=== PATIENT | female | born 1945 | race Caucasian/White ===

== ENCOUNTER → 2016-12-06 | Outpatient (CLI) | payer MEDICARE, OTHER | LOC: KOH-I 12-03 16:00 | DX: R41.2 Retrograde amnesia (principal) | CPT/HCPCS: 70450 ==

== ENCOUNTER 2017-05-21 18:05 | Emergency (ER) | payer MEDICARE, OTHER ==
[2017-05-21 20:16] LABS: RED BLOOD COUNT 3.94 M/UL (4.00-5.10); WHITE BLOOD COUNT 3.5 K/UL (4.5-11.0)
[2017-05-21 20:39] LABS: BUN/CREATININE RATIO 10 (0-10)
== END 2017-05-21 22:10 | disposition home or self-care (01) ==
LOC: ER1 18:05
PROVIDERS: Family Medicine
DX: R41.0 Disorientation, unspecified (principal); T37.5X5A Adverse effect of antiviral drugs, initial encounter; B02.9 Zoster without complications; Z88.6 Allergy status to analgesic agent; Z79.82 Long term (current) use of aspirin; Z79.899 Other long term (current) drug therapy
CPT/HCPCS: 36415; 70450; 80053; 80307; 81001; 85025; 99285

== ENCOUNTER 2022-01-29 22:21 | Inpatient (IN) | payer MEDICARE ==
[~2022-01-29] VITALS: Ht 162.6 cm; Wt 78.0 kg
[~2022-01-29 22:21] MED LIST: ANUSOL HC SUPP1 SUPP PR; ARICEPT10 MG PO; ATIVAN0.5 MG PO; CATAPRES 0.1MG0.1 MG PO; COLACE 100MG C100 MG PO; CYMBALTA60 MG PO; FLORINEF 0.1 M0.1 MG PO; HYDROCHLOROTHIA25 MG PO; LEVAQUIN500 MG PO; METOPROLOL SUCC25 MG PO; NEURONTIN 400400 MG PO; NORVASC10 MG PO; OMEPRAZOLE20 MG PO; POTASSIUM CHLO20 ME1 PO; SYNTHROID75 MCG PO; ULTRAM50 MG PO; ZOCOR20 MG PO
[2022-01-29 23:14] LABS: HEMOGLOBIN 10.2 gm/dl (12.3-15.3); RED BLOOD COUNT 3.18 M/UL (4.00-5.10); WHITE BLOOD COUNT 2.6 K/UL (4.5-11.0)
[2022-01-29 23:25] LABS: BUN/CREATININE RATIO 20 (0-10)
[2022-01-30 07:19] LABS: HEMOGLOBIN 10.2 gm/dl (12.3-15.3); RED BLOOD COUNT 3.21 M/UL (4.00-5.10)
[2022-01-30 07:20] LABS: WHITE BLOOD COUNT 7.1 K/UL (4.5-11.0)
[2022-01-30 07:37] LABS: BUN/CREATININE RATIO 19 (0-10)
[2022-01-30] MEDS ORDERED: CARBIDOPA-LEVO1 EAC6 PO (10:02)
[2022-01-30] MEDS ORDERED: CEFDINIR300 MG PO (10:02)
[2022-01-30] MEDS ORDERED: POTASSIUM CHLO20 ME2 PO (10:03)
[2022-01-30] MEDS ORDERED: NEURONTIN400 MG PO (10:03)
[2022-01-30] MEDS ORDERED: FLONASE ALLER15.8 ML (10:03)
[2022-01-30] MEDS ORDERED: NAMENDA 5 MG TAB5 MG PO (10:03)
[2022-01-30] MEDS ORDERED: VITAMIN D21250 MCG PO (10:04)
[2022-01-30] MEDS ORDERED: HYDROXYCHLOROQ200 MG PO (10:04)
[2022-01-30] MEDS ORDERED: GABAPENTIN600 MG PO (10:04)
[2022-01-30] MEDS ORDERED: DOCUSATE SODIU100 MG PO (10:04)
[2022-01-30 12:21] LABS: CANDIDA ALBICANS Not Detected (Negative); CANDIDA KRUSEI Not Detected (Negative); CANDIDA TROPICALIS Not Detected (Negative); HAEMOPHILUS INFLUENZAE Not Detected (Negative); KLEBSIELLA OXYTOCA Not Detected (Negative); KLEBSIELLA PNEUMONIAE Not Detected (Negative); KPC-CARBAPENEM-RESISTANCE GENE Not Detected (Negative); PROTEUS Not Detected (Negative); PSEUDOMONAS AERUGINOSA Not Detected (Negative); SERRATIA MARCESANS Not Detected (Negative); STAPHYLOCOCCUS Not Detected (Negative); STAPHYLOCOCCUS AUREUS Not Detected (Negative); STREP AGALACTIAE (GROUP B) Not Detected (Negative); STREP PYOGENES (GROUP A) Not Detected (Negative); STREPTOCOCCUS Not Detected (Negative); vanA/B (VANCOMYCIN RESIST GENE Not Detected (Negative)
[2022-01-30 13:31] LABS: ESCHERICHIA COLI DETECTED (Negative)
[2022-01-31 06:05] LABS: HEMOGLOBIN 9.5 gm/dl (12.3-15.3); WHITE BLOOD COUNT 6.6 K/UL (4.5-11.0)
[2022-01-31 06:28] LABS: BUN/CREATININE RATIO 16 (0-10)
[2022-02-01 03:00] LABS: HEMOGLOBIN 9.6 gm/dl (12.3-15.3); RED BLOOD COUNT 3.03 M/UL (4.00-5.10); WHITE BLOOD COUNT 6.9 K/UL (4.5-11.0)
[2022-02-01 03:55] LABS: BUN/CREATININE RATIO 14 (0-10)
--- NOTE | 2022-02-01 15:46 | NUR ---
PT DESATED ON ROOM AIR TO 70% APPLIED O2 NC PT WENT UP TO 82 MONITORED FOR 1 MINUTE O2 SAT NEVER INCREASED, TURN 02 UP TO 2.5 SAT INCREASED TO 85% MONITORED FOR 1 MINUTE SAT NEVER INCREASED, INCREASED 02 TO 3L WATCHED FOR 3 MINUTES SSAT DID NOT INCREASE OVER 88%, INCREASED 02 TO 4L PT BEGAN TO SAT 90% AFTER 1 MINUTE.
[2022-02-02 04:05] LABS: HEMOGLOBIN 9.4 gm/dl (12.3-15.3); WHITE BLOOD COUNT 7.5 K/UL (4.5-11.0)
[2022-02-02 04:17] LABS: BUN/CREATININE RATIO 14 (0-10)
[2022-02-03 03:27] LABS: RED BLOOD COUNT 2.85 M/UL (4.00-5.10); WHITE BLOOD COUNT 7.4 K/UL (4.5-11.0)
[2022-02-03 03:36] LABS: BUN/CREATININE RATIO 12 (0-10)
[2022-02-04 05:15] LABS: HEMOGLOBIN 9.2 gm/dl (12.3-15.3); RED BLOOD COUNT 2.9 M/UL (4.00-5.10); WHITE BLOOD COUNT 7.5 K/UL (4.5-11.0)
--- NOTE | 2022-02-04 05:37 | NUR ---
PT HFNC WAS INCREASED DURING THE NIGHT FROM 5L TO 8L. WHEN PT GOES TO SLEEP PT 02 DECREASES INTO LOW 80'S. IF PT MOVES MUCH AT ALL PT DECREASES. PT MAINTAINS O2 ABOVE 90% WHEN ON 8L DURING PM. WILL CONTINUE TO MONITOR PT.
[2022-02-04 05:48] LABS: BUN/CREATININE RATIO 12 (0-10)
--- NOTE | 2022-02-04 10:04 | NUR ---
PATIENT O2 SATS 86% ON ROOM AIR.
[2022-02-05 02:41] LABS: HEMOGLOBIN 9.8 gm/dl (12.3-15.3); RED BLOOD COUNT 3.15 M/UL (4.00-5.10); WHITE BLOOD COUNT 8.2 K/UL (4.5-11.0)
[2022-02-05 03:00] LABS: BUN/CREATININE RATIO 13 (0-10)
[2022-02-06 03:50] LABS: HEMOGLOBIN 9.6 gm/dl (12.3-15.3); RED BLOOD COUNT 3.1 M/UL (4.00-5.10); WHITE BLOOD COUNT 6.4 K/UL (4.5-11.0)
[2022-02-06 04:32] LABS: BUN/CREATININE RATIO 29 (0-10)
[2022-02-08 08:46] LABS: HEMOGLOBIN 10.1 gm/dl (12.3-15.3); RED BLOOD COUNT 3.23 M/UL (4.00-5.10); WHITE BLOOD COUNT 9.4 K/UL (4.5-11.0)
[2022-02-08 09:10] LABS: BUN/CREATININE RATIO 43 (0-10)
[2022-02-09 01:59] LABS: HEMOGLOBIN 9.1 gm/dl (12.3-15.3); RED BLOOD COUNT 2.98 M/UL (4.00-5.10); WHITE BLOOD COUNT 8.2 K/UL (4.5-11.0)
[2022-02-09 02:26] LABS: BUN/CREATININE RATIO 44 (0-10)
[2022-02-10 02:21] LABS: HEMOGLOBIN 9.4 gm/dl (12.3-15.3); RED BLOOD COUNT 2.99 M/UL (4.00-5.10); WHITE BLOOD COUNT 8.4 K/UL (4.5-11.0)
[2022-02-10 02:48] LABS: BUN/CREATININE RATIO 53 (0-10)
[2022-02-11 03:45] LABS: HEMOGLOBIN 9.9 gm/dl (12.3-15.3); RED BLOOD COUNT 3.17 M/UL (4.00-5.10); WHITE BLOOD COUNT 9.2 K/UL (4.5-11.0)
[2022-02-11 04:08] LABS: BUN/CREATININE RATIO 54 (0-10)
[2022-02-12 06:11] LABS: HEMOGLOBIN 9.7 gm/dl (12.3-15.3); RED BLOOD COUNT 3.04 M/UL (4.00-5.10); WHITE BLOOD COUNT 9.3 K/UL (4.5-11.0)
[2022-02-12 06:17] LABS: BUN/CREATININE RATIO 55 (0-10)
[2022-02-13 02:38] LABS: HEMOGLOBIN 9.7 gm/dl (12.3-15.3); RED BLOOD COUNT 3.1 M/UL (4.00-5.10); WHITE BLOOD COUNT 7.1 K/UL (4.5-11.0)
[2022-02-13 03:15] LABS: BUN/CREATININE RATIO 51 (0-10)
[2022-02-14 03:37] LABS: BUN/CREATININE RATIO 52 (0-10)
[2022-02-15 02:19] LABS: HEMOGLOBIN 9.8 gm/dl (12.3-15.3); RED BLOOD COUNT 3.14 M/UL (4.00-5.10); WHITE BLOOD COUNT 7.6 K/UL (4.5-11.0)
[2022-02-15 04:12] LABS: BUN/CREATININE RATIO 52 (0-10)
--- NOTE | 2022-02-15 05:29 | NUR ---
FAMILY DOES NOT WANT PATIENT WOKE UP FOR 6 AM MED PAST AND REQUEST THAT WE HOLD THE MEDS UNTIL LATER, PHARMACY NOTIFIED AND MOVING THE DOSING TIME TO 0800
[2022-02-16 03:02] LABS: HEMOGLOBIN 10.1 gm/dl (12.3-15.3); RED BLOOD COUNT 3.23 M/UL (4.00-5.10); WHITE BLOOD COUNT 8.9 K/UL (4.5-11.0)
[2022-02-16 03:21] LABS: BUN/CREATININE RATIO 55 (0-10)
[2022-02-17 07:13] LABS: BUN/CREATININE RATIO 43 (0-10)
[2022-02-17 07:33] LABS: HEMOGLOBIN 9.6 gm/dl (12.3-15.3); RED BLOOD COUNT 3.09 M/UL (4.00-5.10); WHITE BLOOD COUNT 9.9 K/UL (4.5-11.0)
[2022-02-18 03:10] LABS: HEMOGLOBIN 9.6 gm/dl (12.3-15.3); RED BLOOD COUNT 3.07 M/UL (4.00-5.10)
[2022-02-18 03:34] LABS: BUN/CREATININE RATIO 34 (0-10)
[2022-02-19 04:08] LABS: HEMOGLOBIN 10.3 gm/dl (12.3-15.3); RED BLOOD COUNT 3.35 M/UL (4.00-5.10); WHITE BLOOD COUNT 8.3 K/UL (4.5-11.0)
[2022-02-19 04:30] LABS: BUN/CREATININE RATIO 29 (0-10)
[2022-02-19] MEDS ORDERED: ELIQUIS 5 MG TAB5 MG PO (13:01)
[2022-02-19] MEDS ORDERED: MYCOSTATIN100000 UTS PO (13:01)
[2022-02-19] MEDS ORDERED: MAGIC MOUTHWASH PO (13:01)
[2022-02-19] MEDS ORDERED: PREDNISONE 10 M10 MG PO (13:01)
== END 2022-02-19 17:35 | DRG 871 ==
LOC: ER1 22:21 → CDU 01-30 04:01 → PROG CARE 01-30 04:01 → M/S 01-30 04:01 → PROG CARE 02-04 23:31
PROVIDERS: Family Medicine; Internal Medicine; Internal Medicine Infectious Disease; Nurse Practitioner Family; Student in an Organized Health Care Education/Training Program; ADMIT Internal Medicine
PROC: 3E03329 Introduction of Other Anti-infective into Peripheral Vein, Percutaneous Approach (ICD-10-PCS; principal; 2022-01-30)
PROC: B24BZZZ Ultrasonography of Heart with Aorta (ICD-10-PCS; 2022-02-02)
PROC: 5A0955A Assistance with Respiratory Ventilation, Greater than 96 Consecutive Hours, High Flow/Velocity Cannula (ICD-10-PCS; 2022-02-03)
DX: A41.51 Sepsis due to Escherichia coli [E. coli] (principal); J18.9 Pneumonia, unspecified organism; G92.8 Other toxic encephalopathy; J80 Acute respiratory distress syndrome; I50.33 Acute on chronic diastolic (congestive) heart failure; N39.0 Urinary tract infection, site not specified; B37.0 Candidal stomatitis; R65.20 Severe sepsis without septic shock; E03.9 Hypothyroidism, unspecified; F32.A Depression, unspecified; K21.9 Gastro-esophageal reflux disease without esophagitis; I11.0 Hypertensive heart disease with heart failure; B96.20 Unspecified Escherichia coli [E. coli] as the cause of diseases classified elsewhere; Z66 Do not resuscitate; D72.819 Decreased white blood cell count, unspecified; E87.6 Hypokalemia; D64.9 Anemia, unspecified; F41.9 Anxiety disorder, unspecified; E83.39 Other disorders of phosphorus metabolism; G20 Parkinson's disease; F02.80 Dementia in other diseases classified elsewhere, unspecified severity, without behavioral disturbance, psychotic disturbance, mood disturbance, and anxiety; M54.9 Dorsalgia, unspecified; G62.9 Polyneuropathy, unspecified; K59.00 Constipation, unspecified; E78.5 Hyperlipidemia, unspecified; F01.50 Vascular dementia, unspecified severity, without behavioral disturbance, psychotic disturbance, mood disturbance, and anxiety; I48.0 Paroxysmal atrial fibrillation; Z98.890 Other specified postprocedural states; Z88.2 Allergy status to sulfonamides; Z79.899 Other long term (current) drug therapy; Z79.82 Long term (current) use of aspirin; Z79.01 Long term (current) use of anticoagulants
CPT/HCPCS: ECHO; 0240U; 36415; 36600; 70450; 71045; 73030; 80048; 80053; 80202; 81001; 82607; 82746; 82803; 83605; 83735; 83880; 84100; 84439; 84443; 85025; 85027; 85379; 85610; 85652; 86140; 87040; 87070; 87077; 87081; 87086; 87150; 87186; 87205; 93005; 93306; 94640; 94664; 94760; 94762; 97116; 97162; 97164; 97530; 97530-GP-CQ; 99285; J0696; J1120; J1205; J1335; J1650; J1940; J2185; J2920; J2930; J3370; J3486; J7030; J7070; Q0177; U0002